=== PATIENT | male | born 1995 | race Caucasian/White ===

== ENCOUNTER 2020-08-01 12:30 | Emergency (ER) | payer SELFPAY ==
[2020-08-01] MEDS ORDERED: NA CHLORIDE 0.9% 1,000 ML ONE (13:41)
[2020-08-01] MEDS ORDERED: ASPIRIN 81 MG CHEWABLE TABLET ONE (13:41)
[2020-08-01 13:54] LABS: Absolute Lymphocytes (CBC) 2.6 K/uL (0.7-4.9); Hematocrit 40.1 % (39.6-49.0); Lymphocytes % 35.5 % (15.3-44.8); MPV 8.6 fL (7.6-11.3); RBC Red Blood Cell Count 4.55 M/uL (4.33-5.43)
[2020-08-01 13:57] LABS: ALT/SGPT 29 U/L (12-78); AST/SGOT 20 U/L (15-37); Alkaline Phosphatase 45 U/L (45-117); BUN Blood Urea Nitrogen 12 mg/dL (7-18); Bicarbonate 26 mmol/L (21-32); Bilirubin Direct 0.1 mg/dL (0-0.2); Bilirubin Total 0.5 mg/dL (0.2-1.0); Glucose Level 97 mg/dL (74-106); Lipase 104 U/L (73-393); Magnesium 2.2 mg/dL (1.8-2.4); NT PRO-BNP 47 pg/mL (<125); Potassium 4.2 mmol/L (3.5-5.1); Protein, Total 7.1 g/dL (6.4-8.2); Sodium Level 143 mmol/L (136-145); Troponin (Emerg Dept Use Only) < 0.02 ng/mL (0.0-0.045)
--- NOTE | 2020-08-01 14:39 | RAD REPORT ---
EXAM DESCRIPTION: RAD - Chest Single View - 08/01/2020 2:05 pm CLINICAL HISTORY: CHEST PAIN COMPARISON: None TECHNIQUE: AP portable chest image was obtained 08/01/2020 2:05 pm . FINDINGS: Lungs are clear. Heart and vasculature are normal. No measurable pleural effusion and no p neumothorax. No gross rib abnormality seen. Concerns for a focal rib process could be evaluated with dedicated rib films. No acute aortic findings suspected. IMPRESSION: No acute cardiopulmonary process.
[2020-08-01 15:21] LABS: Barbiturates NEGATIVE (NEGATIVE); Benzodiazepines NEGATIVE (NEGATIVE); Cocaine NEGATIVE (NEGATIVE); METHAMPHETAM NEGATIVE (NEGATIVE); Methadone NEGATIVE (NEGATIVE); Opiates NEGATIVE (NEGATIVE); Phencyclidine NEGATIVE (NEGATIVE); THC Cannibis POSITIVE (NEGATIVE)
--- NOTE | 2020-08-01 15:29 | EDPHYS ---
Physician Documentation [facility] Name: William Riley Age: 24 yrs Sex: Male : 1995 Arrival Date: 08/01/2020 Time: 12:35 Bed 5 Private MD: CAS Physician Eliud Payton HPI: 08/01 13:32 This 24 yrs old Male presents to ER via Ambulatory with complaints of Chest eva Pain. 13:32 The patient or guardian reports chest pain that is located primarily in the anterior eva chest wall, left. The pain does not radiate. Associated signs and symptoms: Pertinent positives: chest wall, pleuretic. Historical: - Allergies: 12:42 No Known Allergies; ca1 - Home Meds: 12:42 None [Active]; ca1 - PMHx: 12:42 None; ca1 - PSHx: 12:42 None; ca1 - Immunization history:: Flu vaccine is not up to date. - Social history:: Smoking status: Patient/guardian denies using tobacco, but has a distant history of tobacco abuse. ROS: 13:40 Constitutional: Negative for fever, chills, and weight loss, Eyes: Negative for injury, eva pain, redness, and discharge, ENT: Negative for injury, pain, and discharge, Neck: Negative for injury, pain, and swelling, Respiratory: Negative for shortness of breath, cough, wheezing, and pleuritic chest pain, Abdomen/GI: Negative for abdominal pain, nausea, vomiting, diarrhea, and constipation, Back: Negative for injury and pain, : Negative for injury, bleeding, discharge, and swelling, MS/Extremity: Negative for injury and deformity, Skin: Negative for injury, rash, and discoloration, Neuro: Negative for headache, weakness, numbness, tingling, and seizure, Psych: Negative for depression, anxiety, suicide ideation, homicidal ideation, and hallucinations, Allergy/Immunology: Negative for hives, rash, and allergies, Endocrine: Negative for neck swelling, polydipsia, polyuria, polyphagia, and marked weight changes, Hematologic/Lymphatic: Negative for swollen nodes, abnormal bleeding, and unusual bruising. 13:40 Cardiovascular: Positive for chest pain, with movement, of the left clavicle, anterior aspect of left upper chest and left breast. Exam: 13:40 Constitutional: This is a well developed, well nourished patient who is awake, alert, eva and in no acute distress. Head/Face: Normocephalic, atraumatic. Eyes: Pupils equal round and reactive to light, extra-ocular motions intact. Lids and lashes normal. Conjunctiva and sclera are non-icteric and not injected. Cornea within normal limits. Periorbital areas with no swelling, redness, or edema. ENT: Nares patent. No nasal discharge, no septal abnormalities noted. Tympanic membranes are normal and external auditory canals are clear. Oropharynx with no redness, swelling, or masses, exudates, or evidence of obstruction, uvula midline. Mucous membranes moist. Neck: Trachea midline, no thyromegaly or masses palpated, and no cervical lymphadenopathy. Supple, full range of motion without nuchal rigidity, or vertebral point tenderness. No Meningismus. Cardiovascular: Regular rate and rhythm with a normal S1 and S2. No gallops, murmurs, or rubs. Normal PMI, no JVD. No pulse deficits. Respiratory: Lungs have equal breath sounds bilaterally, clear to auscultation and percussion. No rales, rhonchi or wheezes noted. No increased work of breathing, no retractions or nasal flaring. Abdomen/GI: Soft, non-tender, with normal bowel sounds. No distension or tympany. No guarding or rebound. No evidence of tenderness throughout. Back: No spinal tenderness. No costovertebral tenderness. Full range of motion. Male : Normal genitalia with no discharge or lesions. Skin: Warm, dry with normal turgor. Normal color with no rashes, no lesions, and no evidence of cellulitis. MS/ Extremity: Pulses equal, no cyanosis. Neurovascular intact. Full, normal range of motion. Neuro: Awake and alert, GCS 15, oriented to person, place, time, and situation. Cranial nerves II-XII grossly intact. Motor strength 5/5 in all extremities. Sensory grossly intact. Cerebellar exam normal. Normal gait. Psych: Awake, alert, with orientation to person, place and time. Behavior, mood, and affect are within normal limits. 13:40 Chest/axilla: Inspection: normal, Palpation: is normal, no acute changes, Axilla: are normal, Lymph nodes: lymphadenopathy is not appreciated. Vital Signs: 12:40 BP 128 / 75; Pulse 44; Resp 16 S; Temp 97.5(TE); Pulse Ox 100% on R/A; Weight 97.52 kg ca1 (R); Height 6 ft. 2 in. (187.96 cm) (R); Pain 6/10; 13:28 BP 118 / 68; Pulse 47; Resp 15; Pulse Ox 100% ; jl7 13:34 BP 121 / 80; Pulse 48; Resp 18; Pulse Ox 100% on R/A; ph 15:00 BP 125 / 76; Pulse 39; Resp 18; Pulse Ox 100% on R/A; ph 16:33 BP 123 / 78; Pulse 46; Resp 16; Temp 97.8; Pulse Ox 99% on R/A; ph 12:40 Body Mass Index 27.60 (97.52 kg, 187.96 cm) ca1 MDM: 13:10 Patient medically screened. eva 13:44 Differential diagnosis: abnormal EKG, coronary artery disease chest wall pain, herpes eva zoster, pancreatitis, pulmonary embolus, stable angina, unstable angina. HEART Score: History: Slightly Suspicious (0), ECG: Normal (0), Age: < or = 45 years (0), Risk Factors: No Risk Factors Known (0), Troponin: < or = 1 x Normal Limit (0). The patient's deep vein thrombosis risk score was calculated as follows: Total Score: 0. This patient was found to be at low risk for a deep vein thrombosis by using the Well's assessment criteria. The patient's pulmonary embolism risk score was calculated as follows: Total Score: 0-2 points. This patient was found to be at low risk for a pulmonary embolism by using the Well's assessment criteria. DEON Risk Score: TOTAL SCORE = 0. Data reviewed: vital signs, nurses notes, lab test result(s), EKG, radiologic studies, plain films. Data interpreted: personnel monitor: rate is 48 beats/min, rhythm is regular, Pulse oximetry: on room air is 48 %. Test interpretation: by ED physician or midlevel provider: ECG, plain radiologic studies. 08/01 13:12 Order name: Basic Metabolic Panel; Complete Time: 14:05 eva 08/01 13:12 Order name: CBC with Diff; Complete Time: 14:05 eva 08/01 13:12 Order name: LFT's; Complete Time: 14:05 eva 08/01 13:12 Order name: Magnesium; Complete Time: 14:05 [facility] 08/01 13:12 Order name: NT PRO-BNP; Complete Time: 14:05 [facility] 08/01 13:12 Order name: Troponin (emerg Dept Use Only); Complete Time: 14:05 [facility] 08/01 13:12 Order name: XRAY Chest (1 view); Complete Time: 14:52 [facility] 08/01 13:12 Order name: Lipase; Complete Time: 14:05 [facility] 08/01 13:12 Order name: UDS; Complete Time: 15:29 [facility] 08/01 13:46 Order name: D-Dimer [facility] 08/01 13:47 Order name: D-Dimer; Complete Time: 15:29 EDMS 08/01 14:30 Order name: Urine Dipstick--Ancillary (enter results) 08/01 12:44 Order name: EKG; Complete Time: 12:45 [facility] 08/01 12:44 Order name: EKG - Nurse/Tech; Complete Time: 12:44 [facility] 08/01 13:12 Order name: Cardiac monitoring; Complete Time: 13:28 [facility] 08/01 13:12 Order name: IV Saline Lock; Complete Time: 13:28 [facility] 08/01 13:12 Order name: Labs collected and sent; Complete Time: 13:28 [facility] 08/01 13:12 Order name: O2 Per Protocol; Complete Time: 13:28 [facility] 08/01 13:12 Order name: O2 Sat Monitoring; Complete Time: 13:28 [facility] Administered Medications: 13:27 Drug: Aspirin 162 mg Route: PO; jl7 14:00 Follow up: Response: No adverse reaction ph 13:27 Drug: NS 0.9% 1000 ml Route: IV; Rate: 125 ml/hr; Site: right antecubital; jl7 16:30 Follow up: Response: No adverse reaction; IV Status: Completed infusion ph Disposition: 08/01/20 15:29 Discharged to Home. Impression: Other chest pain - wall, Bradycardia, unspecified. - Condition is Stable. - Discharge Instructions: Bradycardia, Adult, Nonspecific Chest Pain, Chest Wall Pain, Nonspecific Chest Pain, [id number], Aspirin and Your Heart. - Prescriptions for Ibuprofen 600 mg Oral Tablet - take 1 tablet by ORAL route every 6 hours As needed take with food; 20 tablet. - Medication Reconciliation Form, Thank You Letter, Antibiotic Education, Prescription Opioid Use, Work release form form. - Follow up: Private Physician; When: 2 - 3 days; Reason: Recheck today's complaints, Continuance of care, Re-evaluation by your physician. Follow up: Grayson Dugan; When: 2 - 3 days; Reason: Recheck today's complaints, Continuance of care, Re-evaluation by your physician. - Problem is new. - Symptoms have improved. Signatures: Dispatcher [employer] EDWY Eliud Payton MD MD cha Hall, Patricia, RN RN ph Messi Enamorado, RN RN jl7 Bárbara Savage RN RN ca1 Corrections: (The following items were deleted from the chart) 16:34 15:29 08/01/2020 15:29 Discharged to Home. Impression: Other chest pain - wall; ph Bradycardia, unspecified. Condition is Stable. Discharge Instructions: Nonspecific Chest Pain, Chest Wall Pain, Nonspecific Chest Pain, [id number], Aspirin and Your Heart, Bradycardia, Adult. Prescriptions for Ibuprofen 600 mg Oral Tablet - take 1 tablet by ORAL route every 6 hours As needed take with food; 20 tablet. and Forms are Medication Reconciliation Form, Thank You Letter, Antibiotic Education, Prescription Opioid Use. Follow up: Private Physician; When: 2 - 3 days; Reason: Recheck today's complaints, Continuance of care, Re-evaluation by your physician. Follow up: Grayson Dugan; When: 2 - 3 days; Reason: Recheck today's complaints, Continuance of care, Re-evaluation by your physician. Problem is new. Symptoms have improved. eva
--- NOTE | 2020-08-01 15:29 | ER ---
Nurse's Notes [facility] Name: William Riley Age: 24 yrs Sex: Male : 1995 Arrival Date: 08/01/2020 Time: 12:35 Bed 5 Private MD: Diagnosis: Other chest pain-wall;Bradycardia, unspecified Presentation: 08/01 12:40 Chief complaint: Patient states: Chest pain, L side started 0430 this morning. Denies ca1 cough. Denies injury to chest. 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 Coronavirus screen: Client denies travel out of the [place] in the last 14 days. At this time, the client does not indicate any symptoms associated with coronavirus-19. Ebola Screen: Patient negative for fever greater than or equal to 101.5 degrees Fahrenheit, and additional compatible Ebola Virus Disease symptoms Patient denies exposure to infectious person. Patient denies travel to an Ebola-affected area in the 21 days before illness onset. No symptoms or risks identified at this time. Initial Sepsis Screen: Does the patient meet any 2 criteria? No. Patient's initial sepsis screen is negative. Does the patient have a suspected source of infection? No. Patient's initial sepsis screen is negative. Risk Assessment: Do you want to hurt yourself or someone else? Patient reports no desire to harm self or others. Onset of symptoms was August 01, 2020 at 04:30. 12:40 Method Of Arrival: Ambulatory ca1 12:40 Acuity: RIKY 2 ca1 Triage Assessment: 12:42 Cardiovascular: Rhythm is sinus bradycardia. ca1 Historical: - Allergies: 12:42 No Known Allergies; ca1 - Home Meds: 12:42 None [Active]; ca1 - PMHx: 12:42 None; ca1 - PSHx: 12:42 None; ca1 - Immunization history:: Flu vaccine is not up to date. - Social history:: Smoking status: Patient/guardian denies using tobacco, but has a distant history of tobacco abuse. Screenin:28 Abuse screen: Denies threats or abuse. Denies injuries from another. Nutritional jl7 screening: No deficits noted. Tuberculosis screening: No symptoms or risk factors identified. Fall Risk IV access (20 points). Total Camacho Fall Scale indicates No Risk (0-24 pts). Assessment: 13:32 General: Appears in no apparent distress. comfortable, slender, well groomed, Behavior ph is calm, cooperative, appropriate for age, Denies fever, feeling ill. Pain: Complains of pain in anterior aspect of left upper chest Pain radiates to back. Neuro: Level of Consciousness is awake, alert, obeys commands, Oriented to person, place, time, situation. Cardiovascular: Reports chest pain, shortness of breath, Denies fatigue, lightheadedness, nausea, vomiting, Rhythm is sinus bradycardia Chest pain is located in left anterior chest wall. Respiratory: Airway is patent Respiratory effort is even, unlabored, Respiratory pattern is regular, symmetrical. Derm: Skin is intact, is healthy with good turgor, Skin is pink, warm \T\ dry. Musculoskeletal: Circulation, motion, and sensation intact. Range of motion: intact in all extremities. 15:16 Reassessment: Patient appears in no apparent distress at this time. Patient and/or ph family updated on plan of care and expected duration. Pain level reassessed. Patient is alert, oriented x 3, equal unlabored respirations, skin warm/dry/pink. 16:30 Reassessment: Patient appears in no apparent distress at this time. Patient and/or ph family updated on plan of care and expected duration. Pain level reassessed. Patient is alert, oriented x 3, equal unlabored respirations, skin warm/dry/pink. Pt d/c home, instructed to follow up w/ cardiology, return to ED for worsening symptoms. 16:34 Pain: Pain began. ph Vital Signs: 12:40 BP 128 / 75; Pulse 44; Resp 16 S; Temp 97.5(TE); Pulse Ox 100% on R/A; Weight 97.52 kg ca1 (R); Height 6 ft. 2 in. (187.96 cm) (R); Pain 6/10; 13:28 BP 118 / 68; Pulse 47; Resp 15; Pulse Ox 100% ; jl7 13:34 BP 121 / 80; Pulse 48; Resp 18; Pulse Ox 100% on R/A; ph 15:00 BP 125 / 76; Pulse 39; Resp 18; Pulse Ox 100% on R/A; ph 16:33 BP 123 / 78; Pulse 46; Resp 16; Temp 97.8; Pulse Ox 99% on R/A; ph 12:40 Body Mass Index 27.60 (97.52 kg, 187.96 cm) ca1 ED Course: 12:35 Patient arrived in ED. mr 12:42 Triage completed. ca1 12:42 Arm band placed on. EKG completed in triage. Results shown to MD. ca1 13:10 Eliud Payton MD is Attending Physician. eva 13:17 Humera Root, RN is Primary Nurse. ph 13:28 Patient has correct armband on for positive identification. Placed in gown. Bed in low jl7 position. Call light in reach. Side rails up X 1. interventional radiology tech on. Pulse ox on. NIBP on. 13:28 Patient maintains SpO2 saturation greater than 95% on room air. jl7 13:33 Initial lab(s) drawn, by me, sent to lab. Inserted saline lock: 20 gauge in right ph antecubital area, using aseptic technique. Blood collected. 14:05 XRAY Chest (1 view) In Process Unspecified. EDMS 15:29 Grayson Dugan MD is Referral Physician. eva 16:34 No provider procedures requiring assistance completed. IV discontinued, intact, ph bleeding controlled, No redness/swelling at site. Pressure dressing applied. Administered Medications: 13:27 Drug: Aspirin 162 mg Route: PO; jl7 14:00 Follow up: Response: No adverse reaction ph 13:27 Drug: NS 0.9% 1000 ml Route: IV; Rate: 125 ml/hr; Site: right antecubital; jl7 16:30 Follow up: Response: No adverse reaction; IV Status: Completed infusion ph Outcome: 15:29 Discharge ordered by . eva 16:34 Discharged to home ambulatory. ph 16:34 Condition: good 16:34 Discharge instructions given to patient, Instructed on discharge instructions, follow up and referral plans. medication usage, Demonstrated understanding of instructions, follow-up care, medications, Prescriptions given X 1. 16:34 Patient left the ED. ph Signatures: Dispatcher [employer] EDMS Eliud Payton MD MD cha Rivera, Mary mr Humera Root, RN ROYA ph Messi Enamorado RN RN jl7 Bárbara Savage RN RN ca1 Corrections: (The following items were deleted from the chart) 12:43 12:40 Chief complaint: Patient states: Chest pain, L side started 0430 this morning. ca1 Denies cough. Denies injury to chest ca1
[2020-08-01 17:06] LABS: Urine Blood NEGATIVE (NEG); Urine Glucose NEGATIVE (NEG); Urine Protein NEGATIVE (NEG); Urine Specific Gravity 1.025 (1.005-1.030); Urine pH 7.5 (5.0-7.0)
[2020-08-01 22:57] VITALS: BP 123/78; TEMP 97.8; O2SAT 99
--- NOTE | 2020-08-03 04:38 | EKG ---
Test Date: 2020-08-01 Test Time: 11:38:51 Hydropress Operator: GORDON MEASUREMENT RESULTS: Intervals: Rate: 44 IL: 136 QRSD: 96 QT: 388 QTc: 331 Coulters: P: 19 IL: 136 QRS: 104 T: 29 INTERPRETIVE STATEMENTS: Marked sinus bradycardia Rightward axis Abnormal ECG No previous ECG available for comparison Electronically Signed On 08-03-20 04:32:56 CDT by Grayson Dugan
== END 2020-08-01 16:34 | disposition home or self-care (01) ==
LOC: ER 12:30
DX: R00.1 Bradycardia, unspecified (principal)
CPT/HCPCS: 36415; 71045; 80048; 80076; 80307; 81003; 83690; 83735; 83880; 84484; 85025; 85379; 93005; 96360; 96361; 99285; J7030